=== PATIENT | male | born 1970 ===

== ENCOUNTER → 2019-07-31 | Outpatient (CLI) | payer BC | LOC: SJCVCIMAG 11:13 | DX: I35.1 Nonrheumatic aortic (valve) insufficiency (principal) ==

== ENCOUNTER → 2019-08-04 | Outpatient (CLI) | payer BC, OTHER | LOC: SJCVCIMAG 07:38 | DX: I25.89 Other forms of chronic ischemic heart disease (principal); E78.5 Hyperlipidemia, unspecified; E11.9 Type 2 diabetes mellitus without complications; J44.9 Chronic obstructive pulmonary disease, unspecified; Z87.891 Personal history of nicotine dependence ==

== ENCOUNTER → 2019-08-15 | Outpatient (CLI) | payer BC, OTHER ==
[~2019-08-15] VITALS: Ht 180.3 cm; Wt 114.8 kg
[~2019-08-15] MED LIST: BUDESONIDE-FO10.2 GM INH; IMITREX100 MG PO; JARDIANCE10 MG PO; MELOXICAM15 MG PO; METFORMIN HCL500 M3 PO; PROAIR RESPICL90 MCG INJECTION; TRULICITY1.5 MG/0.5 SUBQ
[2019-08-15 08:36] VITALS: BP 118/78
[2019-08-15 08:41] LABS: HEMATOCRIT 47.9 % (42.0-52.0); HEMOGLOBIN 16.7 gm/dL (14.0-18.0); MCH 32.2 pg (26.0-34.0); MCHC 34.8 g/dL (28.0-37.0); MCV 92.5 fL (80.0-100.0); RBC 5.18 mil/uL (4.50-6.00); RDW 12.7 % (10.5-14.5); WBC 6.2 thou/uL (4.0-11.0)
[2019-08-15 08:49] LABS: CALCIUM 8.4 mg/dL (8.5-10.1); CREATININE 0.9 mg/dL (0.7-1.3); POTASSIUM 3.8 mmol/L (3.5-5.1)
--- NOTE | 2019-08-16 12:29 | CATHLAB ---
[facility] [place] [address] INVASIVE PROCEDURE REPORT Name: HARRIOSN BECKETT Room #: REG LIU Danielle#: [id number] Admission: 08/15/19 Attend Phys: Abran Mejia Discharge: Date of : 72 Report #: [id number] THIS REPORT FOR: cc: Gregory Jasso James A. DO Lammoglia, Francisco J. MD ~ APPROVED REPORT Study performed: 08/15/2019 09:33:06 Patient Details The patient is a 49 year-old male Event Personnel Abran Mejia Angiography Nurse, Ana Brooks RN, Marnie Esquivel RTR Elisha, Trina oSod RTR Monitor Procedures Performed Art Access - R femoral artery* Left Heart Cath w/or w/o Coronaries [id number] [facility] 13849 Initial Mod Sed Same Phys/QHP Gr5y 015001 88195 Mod Sed Same Phys/QHP Ea 078683 Hemostasis with Manual pressure, supervision of conscious sedation Indication Positive stress test, Chest pain Procedure Narrative The Right Groin^ was infiltrated with 1% Lidocaine subcutaneous anesthesia. A PINNACLE 4FR Sheath #[id number] sheath was inserted into the RFA^. Coronary angiography was performed using coronary diagnostic catheters. The right coronary system was accessed and visualized with a JR4 catheter. The left coronary system was accessed and visualized with a JL5 catheter. The left ventricle was accessed and visualized with a PIGTAIL catheter. Left ventricular/Aortic Valve gradient assessed via catheter pullback. Hemostasis was obtained with manual pressure following sheath removal without any complications. The patient tolerated the procedure well and there were no complications associated with the procedure. There was no hematoma. Intraoperative Conscious Sedation Sedation start time: 942 Case end Time: 1010 Versed 2 mg [facility] [address] [place] [address] INVASIVE PROCEDURE REPORT Name: SOPHYHARRISON Room #: REG DOC Santos#: [id number] Admission: 08/15/19 Attend Phys: Abran Garcia Discharge: Date of : 72 Report #: [id number] Fluoro Time: 4.20 minutes Dose: DAP 8966.00 cGycm2 1664 mGy Contrast Type and Amount: Omnipaque 80 ml Coronary Angiography The patient's coronary anatomy is right dominant. Diagnostic Cath Left Main Moderate to large caliber vessel bifurcates left anterior descending left circumflex free of high-grade disease LAD Moderate caliber type II vessel courses in the anterior interventricular sulcus giving rise to septal and diagonal branches. The vessel tapers was the apex and the distal third is significantly smaller than the mid portion. It has luminal irregularities but no high-grade obstructive lesions Diagonal 1 Small diminutive caliber vessel free of high-grade disease Diagonal 2 Small-caliber vessel less than 1 mm in diameter without significant obstructive lesions Circumflex Moderate caliber vessel has a proximal narrowing of approximately 30-40% noted only in one view. The vessel continues on giving rise to marginal branches which are free of high-grade disease OM1 Moderate caliber vessel which arises quite near the origin of the circumflex proper and may be a ramus branch. This proximal narrowing as stated above but free of high-grade disease is recorded on the lateral aspect of the left ventricle OM2 Small-caliber vessel without significant high-grade lesions but there is some mild luminal irregularities noted Right Coronary Large-caliber vessel of normal origin per cc in the AV groove with luminal irregularities as it gives her severe right atrial and ventricular vessels which are small in size. Irregularities in the proximal portion of the RCA are less than 30%. During continues to the crux of the heart was regular some moderate to large caliber posterior descending artery and then terminates as a posterolateral wall branch without high-grade obstructive lesions with presence of luminary irregularities noted R PDA Monitor large-caliber vessel without high-grade lesions. Luminal irregularities are present Left Ventriculography Left Ventriculography was not performed. Hemodynamics The aortic pressure is 139/92 mmHg with a mean of 111 mmHg. The left [facility] [address] [place] [address] INVASIVE PROCEDURE REPORT Name: YOVANIMICHELLEHARRISON Room #: REG CL Marjorie#: [id number] Admission: 08/15/19 Attend Phys: Abran Garcia Discharge: Date of : 72 Report #: [id number] ventricular pressure is 133/14 mmHg with a mean of mmHg. The left ventricular end diastolic pressure is 25 mmHg. Conclusion 1. Minimal nonobstructive coronary artery disease 2. Normal hemodynamics Recommendations Cardiac Risk Reduction Program [facility] Medical Therapy <ELECTRONICALLY SIGNED> By: Abran Mejia MD 08/16/19 1228 1228 1228 Abran Mejia MD /INF
== END ==
LOC: CATH 08:10
PROVIDERS: Internal Medicine
DX: R07.9 Chest pain, unspecified (principal); R94.39 Abnormal result of other cardiovascular function study; I25.10 Atherosclerotic heart disease of native coronary artery without angina pectoris; E11.9 Type 2 diabetes mellitus without complications; E78.5 Hyperlipidemia, unspecified; J44.9 Chronic obstructive pulmonary disease, unspecified; I73.9 Peripheral vascular disease, unspecified; Z98.890 Other specified postprocedural states; Z79.899 Other long term (current) drug therapy; Z87.891 Personal history of nicotine dependence

== ENCOUNTER → 2019-09-30 | Outpatient (CLI) | payer BC, OTHER | LOC: LAB 08:00 | PROVIDERS: ATTEND Internal Medicine | DX: Z01.812 Encounter for preprocedural laboratory examination (principal); Z11.59 Encounter for screening for other viral diseases ==

== ENCOUNTER → 2019-10-03 | Outpatient (CLI) | payer BC, OTHER ==
--- NOTE | 2019-11-29 17:38 | MCT ---
[facility] [place] [address] METHACHOLINE CHALLENGE TEST Name: HARRISON BECKETT Room #: ESTELA Santos#: [id number] Admission: 10/03/19 Attend Phys: Jay Swift MD Discharge: Date of : 72 Report #: [id number] THIS REPORT FOR: //name// COPIES FOR: AGE: 49 SEX/RACE: M/ Height: 70 in Exam Date: 10/03/19 Weight: 245 lbs BTPS: X >> PRE BRONCHODILATOR: PREDICTED BEST %PRED FORCED VITAL CAPACITY (FRC) 4.92 L LPM % FORCED EXP VOL/SEC (FEV1) 3.64 L FEV/FVC % MAX MID-EXP FLOW (FEF 25-75) 3.64 L/SEC L/SEC % PEAK EXP FLOW RATE (FEF MAX) 9.04 L/MIN L/MIN MED-VC RATIO (FEF 50/FEF 50) .09 Baseline: Phenol Saline Level 1: 0.025 mg/ml BEST %PRED %CHANGE BEST %PRED %CHANGE FVC 4.16 L 85 % % FVC 4.44 L 90 % 7 % FEV1 3.13 L 86 % % FEV1 3.32 L 91 % 6 % Level 2: 0.25 mg/ml Level 3: 2.5 mg/ml BEST %PRED %CHANGE BEST %PRED %CHANGE FVC 4.14 L 84 % -0 % FVC 3.87 L 79 % -7 % FEV1 3.12 L 86 % -0 % FEV1 2.85 L 78 % -9 % . Level 4: 10 mg/ml Level 5: 25 mg/ml BEST %PRED %CHANGE BEST %PRED %CHANGE FVC L % % FVC L % % FEV1 L % % FEV1 L % % Post Bronchodilator: 1st Treatment Post Bronchodilator: 2nd Treatment BEST %PRED %CHANGE BEST %PRED %CHANGE FVC 4.76 L 97 % 14 % FVC L % % FEV1 3.50 L 96 % 12 % FEV1 L % % Post Bronchodilator: 3rd Treatment BEST %PRED %CHANGE [facility] [address] [place] [address] METHACHOLINE CHALLENGE TEST Name: HARRISON [facility]ECKETT [id number]mission: 10/03/19 Attend Phys: Jay Swift MD Discharge: Date of : 72 Report #: [id number] FVC L % % FEV1 L % % >> INTERPRETATION: CC: Gregory Swift DATE OF SERVICE: 10/03/2019 METHACHOLINE CHALLENGE TEST Routine methacholine challenge test procedures were followed. Baseline FVC is 4.44 liters. FEV1 baseline 3.32 liters. With increasing doses of methacholine, there was no significant response to therapy treatment. FVC and FEV1 decreased to 3.87 liters and 2.85 liters respectively. Mid flows FEV, FEF 25-75% did decrease to 2.23 liters (approximately 16%), at which time the test was discontinued. Bronchodilator therapy was administered with return to normal function. IMPRESSION: Methacholine challenge study was indeterminate. FEV1/FVC values did not significantly decline. However, mid flows did decrease by 16%. Overall, the study is essentially normal and overall nonresponsive to therapy. The test, however, was discontinued prior to full dosing capabilities with return to normal values within one treatment of therapy. While this study did not meet dosing criteria or percentage decline, it is suggestive of a hyperreactive airway. Would consider treatment with appropriate therapy versus repeat evaluation. <ELECTRONICALLY SIGNED> By: Adria Osborne MD 11/29/19 1738 Adria Osborne MD /nt
== END ==
LOC: PUL 13:06
PROVIDERS: ATTEND Internal Medicine
DX: R06.02 Shortness of breath (principal)

== ENCOUNTER → 2020-12-30 | Outpatient (CLI) | payer BC, OTHER | LOC: RAD 13:54 | PROVIDERS: ATTEND Internal Medicine | DX: J45.51 Severe persistent asthma with (acute) exacerbation (principal) ==